=== PATIENT | female | born 1995 | race Caucasian/White ===

== ENCOUNTER 2023-11-17 04:12 | Inpatient (IN) | payer BC, SELFPAY ==
[2023-11-17 04:22] VITALS: BMI 24.9
[2023-11-17 04:26] VITALS: BP 116/78
[2023-11-17] MEDS: LR 1000 IV ×3 (04:35→12:00)
[2023-11-17 04:51] LABS: % Basophils 0.5 % (0-2); % Eosinophils 0.6 % (0-6); % Immature Granulocytes 0.8 % (0-0.5); % Lymphocytes 15.5 % (20.5-51.1); % Monocytes 6.3 % (1.7-9.3); % Neutrophils 76.3 % (42.2-75.2); Absolute Basophils 0.1 10^3/uL (0-0.2); Absolute Eosinophils 0.1 10^3/uL (0-0.7); Absolute Immature Granulocytes 0.1 10^3/uL (0-0.05); Absolute Monocytes 0.8 10^3/uL (0.1-0.6); Absolute Neutrophils 9.8 10^3/uL (1.4-6.5); Hematocrit 41.1 % (37.0-47.0); Hemoglobin 14.3 g/dL (12.0-16.0); Mean Corp Hgb Conc. 34.8 g/dL (33.0-37.0); Mean Corpuscular Volume 89.2 fL (81.0-99.0); Nucleated Red Blood Cells % 0 %; Platelet Count 178 10^3/uL (130-400); Red Blood Cell Count 4.61 10^6/uL (4.20-5.40); Red Cell Dist. Width 13.2 % (11.5-14.5); White Blood Cell Count 12.9 10^3/uL (4.8-10.8)
[2023-11-17] MEDS: PENICILLIN 110 UNITS IV (05:40)
[2023-11-17] MEDS: FENTANYL/BUPIVACAINE 100 EPIDURAL ×2 (06:13→14:03)
[2023-11-17] MEDS: SUBLIMAZE 100 MCG EPIDURAL (06:13)
[2023-11-17] MEDS: PENICILLIN IV (06:26)
[2023-11-17] MEDS: PENICILLIN 55 UNITS IV ×3 (09:27→17:34)
[2023-11-17] MEDS: TYLENOL 650 MG PO (21:44)
[2023-11-18] MEDS: TYLENOL 650 MG PO ×2 (03:54→16:06)
[2023-11-18 04:24] LABS: Hematocrit 39.6 % (37.0-47.0); Hemoglobin 13.8 g/dL (12.0-16.0)
[2023-11-18] MEDS: SENOKOT-S 1 TABLET PO (11:41)
[2023-11-18] MEDS: MOTRIN 600 MG PO ×2 (11:41→19:54)
[2023-11-18] MEDS: PRENATAL PLUS 1 TABLET PO (11:46)
[2023-11-19] MEDS: TYLENOL 650 MG PO (03:00)
[2023-11-19] MEDS: PRENATAL PLUS 1 TABLET PO (07:45)
[2023-11-19] MEDS: MOTRIN 600 MG PO (07:45)
[2023-11-19] MEDS: SENOKOT-S 1 TABLET PO (07:45)
[2023-11-19 11:21] LABS: Syphilis/T. pallidum Ab Reflex Negative (Negative)
== END 2023-11-19 11:22 | disposition home or self-care (01) | DRG 807 ==
LOC: LDRP 04:12
PROVIDERS: Student in an Organized Health Care Education/Training Program; ADMITTING PHYSICIAN Obstetrics & Gynecology
PROC: 10E0XZZ Delivery of Products of Conception, External Approach (ICD-10-PCS; 2023-11-17)
PROC: 4A1HXCZ Monitoring of Products of Conception, Cardiac Rate, External Approach (ICD-10-PCS; 2023-11-17)
PROC: 10907ZC Drainage of Amniotic Fluid, Therapeutic from Products of Conception, Via Natural or Artificial Opening (ICD-10-PCS; 2023-11-17)
PROC: 0KQM0ZZ Repair Perineum Muscle, Open Approach (ICD-10-PCS; 2023-11-17)
DX: O48.0 Post-term pregnancy (principal); Z37.0 Single live birth; Z3A.41 41 weeks gestation of pregnancy; O99.824 Streptococcus B carrier state complicating childbirth; O69.81X0 Labor and delivery complicated by cord around neck, without compression, not applicable or unspecified; O70.1 Second degree perineal laceration during delivery; O77.0 Labor and delivery complicated by meconium in amniotic fluid; R87.612 Low grade squamous intraepithelial lesion on cytologic smear of cervix (LGSIL); O99.72 Diseases of the skin and subcutaneous tissue complicating childbirth; L30.9 Dermatitis, unspecified
CPT/HCPCS: 85014; 85018; 85025; 86780; 86850; 86900; 86901